=== PATIENT | female | born 1945 | race Caucasian/White ===

== ENCOUNTER 2017-04-13 16:09 | Observation (INO) | payer MEDICARE, OTHER ==
[2017-04-13] MEDS ORDERED: Temazepam 15 MG Cap PO PRN (16:20)
[2017-04-13] MEDS ORDERED: Acetaminophen 325 MG Tab PO PRN (16:20)
[2017-04-13] MEDS ORDERED: Magnesium Hydroxide 400 MG/5 ML Susp 30 ML Cup PO PRN (16:20)
[2017-04-13] MEDS ORDERED: Lactated Ringers 1,000 ML IV SCH (16:30)
[2017-04-13 17:07] LABS: CHLORIDE,CL 107 mEq/L (98-106); SODIUM,NA 144 mEq/L (136-145)
[2017-04-13] MEDS ORDERED: Enoxaparin 40 MG/0.4 ML Syringe SUBCUT SCH (18:00)
[2017-04-13] MEDS ORDERED: Enoxaparin 30 MG/0.3 ML Syringe SUBCUT SCH (20:00)
[2017-04-13] MEDS: Propranolol 10 MG Tab PO SCH (20:04)
[2017-04-14] MEDS: Propranolol 10 MG Tab PO SCH (07:34)
[2017-04-14 07:37] VITALS: BP 148/82
[2017-04-14] MEDS ORDERED: Iopamidol 755 Mg/ML 100 ML Bottle IVPUSH ONE (08:12)
--- NOTE | 2017-04-15 07:07 | DISCH ---
HOSPITAL COURSE: This is an elderly white female who I saw in clinic yesterday markedly dizzy, tachycardic, and hypertensive, admitted to the hospital. Due to the fact she had significant dizziness, we did do a CT of the head, no acute changes. CTA of carotids and head pending. Did have a T4 of 3.9. We started her on Inderal 20 mg t.i.d. this morning. PHYSICAL EXAMINATION: NECK: Supple. CHEST: Clear. CARDIAC: Sounds are good. Blood pressure is good. She feels great. DISPOSITION: The patient is now discharged to home. We will see her back in the clinic next week and evaluate her. DISCHARGE MEDICATIONS: Inderal 20 mg t.i.d. DISCHARGE DIAGNOSIS: GRAVES DISEASE, QUESTION THYROID NODULE. ALICE/BHAVNA /[id number]
== END 2017-04-14 11:00 | disposition home or self-care (01) ==
LOC: UNDOADMOB 16:09 → CC.MS 16:09
PROVIDERS: ADMIT General Practice; ATTEND General Practice
DX: E05.00 Thyrotoxicosis with diffuse goiter without thyrotoxic crisis or storm (principal); I10 Essential (primary) hypertension; Z88.0 Allergy status to penicillin; Z88.8 Allergy status to other drugs, medicaments and biological substances
CPT/HCPCS: 36415; 70450; 70496; 70498; 71020; 80053; 81001; 82550; 83615; 83735; 83880; 84439; 84443; 84484; 85025; 85379; 86140; 93005; 93306; 96372; A9270; G0378; J1650; J7120; Q9967; 93010; 99217; 99220

== ENCOUNTER 2023-04-01 16:52 | Emergency (ER) | payer MEDICARE, OTHER ==
[2023-04-01] MEDS: Aspirin 81 MG Tab.Chew PO ONE (17:20)
[2023-04-01] MEDS ORDERED: Sodium Chloride 0.9% 10 ML Syringe FLUSH PRN (17:24)
[2023-04-01 17:35] LABS: BASOPHILS ABSOLUTE AUTO 0.03 10^3/uL (0.00-0.50); BASOPHILS PERCENT AUTO 0.3 % (0-1); EOSINOPHILS ABSOLUTE AUTO 0.16 10^3/uL (0.00-1.50); EOSINOPHILS PERCENT AUTO 1.8 % (0-6); HEMATOCRIT 38.7 % (37.0-47.0); HEMOGLOBIN 13.3 g/dL (12.0-16.0); IMMATURE GRAN ABSOLUTE AUTO 0.01 10^3/uL (0.00-0.49); IMMATURE GRAN PERCENT AUTO 0.1 % (0.0-4.9); MEAN CORPUSCULAR HEMOGLOBIN 29.8 pg (27.0-32.0); MEAN CORPUSCULAR HGB CONC 34.4 g/dL (32.0-36.0); MEAN CORPUSCULAR VOLUME 86.8 fL (83.0-97.0); MONOCYTES ABSOLUTE AUTO 0.93 10^3/uL (0.00-1.50); MONOCYTES PERCENT AUTO 10.5 % (0-10); NEUTROPHILS ABSOLUTE AUTO 6.21 x10^3/uL (1.80-8.00); NEUTROPHILS PERCENT AUTO 70.3 % (41-71); PLATELET COUNT,PLT 281 10^3/uL (150-400); RED BLOOD CELL COUNT 4.46 x10^6/uL (4.00-5.50); WHITE BLOOD CELL COUNT,WBC 8.8 10^3/uL (4.0-11.0)
[2023-04-01 17:40] LABS: PROTHROMBIN TIME 10.3 SEC (9.3-11.3)
[2023-04-01] MEDS: Diltiazem 25 MG/5 ML SDV IVPUSH ONE (17:52)
[2023-04-01 17:58] LABS: ALBUMIN 3.3 g/dL (3.4-5.0); BILIRUBIN TOTAL 0.4 mg/dL (0.0-1.0); CALCIUM 9.2 mg/dL (8.4-10.1); CREATININE 1.1 mg/dL (0.6-1.0); EST CRCL DRUG DOSING (CG) 39.76 mL/min; MAGNESIUM 1.8 mg/dL (1.8-2.4); POTASSIUM,K 3.8 mEq/L (3.5-5.0); TSH ULTRASENSITIVE 1.6 uIU/mL (0.36-5.60)
[2023-04-01] MEDS: Diltiazem IR 30 MG Tab PO ONE (22:41)
[2023-04-02 05:10] VITALS: BP 121/79; PULSE 92
== END 2023-04-01 23:10 | disposition home or self-care (01) ==
LOC: CC.ED 16:52
DX: I48.92 Unspecified atrial flutter (principal); I10 Essential (primary) hypertension; Z88.0 Allergy status to penicillin; Z88.8 Allergy status to other drugs, medicaments and biological substances; Z88.5 Allergy status to narcotic agent; Z79.899 Other long term (current) drug therapy
CPT/HCPCS: 36415; 71046; 80053; 83605; 83735; 83880; 84443; 84484; 85025; 85610; 93005; 96374; 99284; 99285-25; A9270-GY; J3490